=== PATIENT | male | born 1960 | race Caucasian/White ===

== ENCOUNTER 2017-11-30 05:10 | Day surgery (SDC) | payer OTHER ==
[~2017-11-30 05:10] MED LIST: ASA81 MG PO; CARDURA XL4 MG PO; INDUR PO; LIPITOR40 MG PO; LOSARTAN POTASS25 MG PO
[2017-11-30] MEDS ORDERED: DUI500 PO (09:15)
[2017-11-30] MEDS ORDERED: TRAM1TAB98 PO (09:15)
== END 2017-11-30 14:40 | disposition home or self-care (01) ==
LOC: CIR.AMB 05:10
DX: M23.321 Other meniscus derangements, posterior horn of medial meniscus, right knee (principal); M17.11 Unilateral primary osteoarthritis, right knee; M65.861 Other synovitis and tenosynovitis, right lower leg

== ENCOUNTER 2023-04-01 14:53 | Inpatient (IN) | payer OTHER ==
[~2023-04-01] VITALS: Ht 167.6 cm; Wt 68.0 kg
[~2023-04-01 14:53] MED LIST changes: +DUI500 PO; +TRAM1TAB98 PO
[2023-04-02] MEDS ORDERED: TOPROL XL25 M1 PO (13:22)
[2023-04-08] MEDS ORDERED: LOSARTAN-HCTZ1 EAC2 (09:44)
[2023-04-08] MEDS ORDERED: NIFEDIPINE ER30 M1 (09:44)
[2023-04-08] MEDS ORDERED: TADALAFIL20 MG (09:44)
[2023-04-10] MEDS ORDERED: INTEGRA PLUS C1 EACH PO (07:54)
[2023-04-10] MEDS ORDERED: XARELTO10 MG PO (07:54)
[2023-04-10] MEDS ORDERED: BACTRIM DS TAB1 EACH PO (07:54)
[2023-04-10] MEDS ORDERED: OXYC1TAB9 PO (07:54)
== END 2023-04-10 17:23 | DRG 470 ==
LOC: O/R 04-08 05:30 → SURH 04-08 05:30
PROVIDERS: ADMIT Orthopaedic Surgery Sports Medicine; ATTEND Orthopaedic Surgery Sports Medicine
PROC: 0SRC0J9 Replacement of Right Knee Joint with Synthetic Substitute, Cemented, Open Approach (ICD-10-PCS; principal; 2023-04-08 07:00)
DX: M17.11 Unilateral primary osteoarthritis, right knee (principal); I10 Essential (primary) hypertension; E78.5 Hyperlipidemia, unspecified; Z96.651 Presence of right artificial knee joint; Z20.822 Contact with and (suspected) exposure to COVID-19